=== PATIENT | female | born 1980 | race Two or more races ===

== ENCOUNTER 2019-04-16 16:43 | Inpatient (IN) | payer OTHER ==
[~2019-04-16] VITALS: Ht 160 cm; Wt 64.9 kg
[2019-04-29] MEDS ORDERED: PERCOCET 5-3251 EACH PO (10:29)
[2019-04-29] MEDS ORDERED: INTESTINEX680 M1 PO (10:29)
[2019-04-29] MEDS ORDERED: OMEPRAZOLE20 MG PO (10:29)
== END 2019-04-29 11:27 | disposition home or self-care (01) | DRG 331 ==
LOC: SURG 04-20 13:00 → SURH 04-24 08:57 → O/R 04-24 08:57 → SURG 04-24 13:00 → SURH 04-24 17:43
PROVIDERS: ADMIT Surgery
PROC: 07TD4ZZ Resection of Aortic Lymphatic, Percutaneous Endoscopic Approach (ICD-10-PCS; 2019-04-24)
PROC: 0DTF4ZZ Resection of Right Large Intestine, Percutaneous Endoscopic Approach (ICD-10-PCS; principal; 2019-04-24 14:00)
DX: C18.3 Malignant neoplasm of hepatic flexure (principal); K59.09 Other constipation; R59.0 Localized enlarged lymph nodes; E11.9 Type 2 diabetes mellitus without complications; Z79.4 Long term (current) use of insulin; R14.0 Abdominal distension (gaseous); K63.89 Other specified diseases of intestine

== ENCOUNTER 2019-04-23 07:13 | Day surgery (SDC) | payer OTHER | END 2019-04-23 11:45 | disposition home or self-care (01) | LOC: AMB-ENDOS 07:13 → CIR.AMB 13:00 | DX: C18.4 Malignant neoplasm of transverse colon (principal) ==

== ENCOUNTER 2019-04-23 09:03 | Outpatient (CLI) | payer OTHER | END 2019-04-23 12:57 | disposition home or self-care (01) | LOC: TOM 09:03 | DX: C18.4 Malignant neoplasm of transverse colon (principal); R59.0 Localized enlarged lymph nodes; K59.09 Other constipation; R10.84 Generalized abdominal pain ==